=== PATIENT | female | born 1975 | race Hispanic/Latino ===

== ENCOUNTER 2018-12-16 07:54 | Emergency (ER) | payer OTHER ==
--- NOTE | 2018-12-16 08:17 | RAD ---
Exam:4 views right knee HISTORY: Fall. Pain. COMPARISON: None FINDINGS: No joint effusion. No fracture or malalignment. Joint spaces are preserved. IMPRESSION: No fracture.
[2018-12-16] MEDS ORDERED: Ketorolac Tromethamine 30 MG/ML VIAL ONE (08:23)
== END 2018-12-16 08:32 | disposition home or self-care (01) ==
LOC: ERS 07:54
DX: S83.91XA Sprain of unspecified site of right knee, initial encounter (principal); W01.0XXA Fall on same level from slipping, tripping and stumbling without subsequent striking against object, initial encounter
CPT/HCPCS: 96372; J1885